=== PATIENT | female | born 2000 | race Caucasian/White ===

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

== ENCOUNTER 2019-12-29 07:44 | Emergency (ER) | payer OTHER, MEDICAID, SELFPAY ==
[2019-12-29 07:45] VITALS: BP 136/75; PULSE 121; RESP 20; TEMP 36.9; O2SAT 98; BMI 23.1
--- NOTE | 2019-12-29 07:54 | EKG12_ITS ---
Test Reason : OD Blood Pressure : / mmHG Vent. Rate : 126 BPM Atrial Rate : 126 BPM P-R Int : 128 ms QRS Dur : 062 ms QT Int : 310 ms P-R-T Axes : 063 074 062 degrees QTc Int : 448 ms Sinus tachycardia Otherwise normal ECG Confirmed by AYAKA DANIELLE, BRIAN ([id number]), tape editor FELIPE VELA ([id number]) on 12/30/2019 2:16:34 PM Referred By: BB Confirmed By:SHASHI MARLEY MD
--- NOTE | 2019-12-29 07:54 | CT_ITS ---
STUDY: CT BRAIN WITHOUT CONTRAST REASON FOR EXAM: Female, 19 years old[place] Pt is mrd and took 1/2 bottle of Motrin RADIATION DOSAGE (If Supplied By Facility): CTDIvol = ( 44.99 ) mGy, DLP = ( 745.49 ) mGycm TECHNIQUE: Transaxial CT imaging of the brain was performed without administration of intravenous contrast material. Individualized dose optimization techniques were used for this CT. COMPARISON: No relevant priors. FINDINGS: Normal soft tissue structures. Normal calvarium. Normal size ventricles and extra-axial spaces for the patient''s age. Normal white matter tracts of the cerebral hemispheres. Normal basal ganglia and thalami. Normal brainstem. Normal cerebellum. There is no intracranial hemorrhage. There are no findings of an acute ischemic infarction. Normal visualized paranasal sinuses. CT/Brain/Head without Contrast IMPRESSION: Normal unenhanced CT scan of the brain. Electronically Signed: Kiran Hunt, at 11:20 EST , Service support ,
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
--- NOTE | 2019-12-29 08:01 | ED.RN ---
PT NOT ANSWERING [place] QUESTIONS, UNABLE TO DETERMINE MEDICAL HX. PT POSSIBLY NAME IS MIGUEL FROM [place] BUT UNSURE. ATTEMPTING THRU [facility] DEPARTMENT TO LOCATE IF MISSING PERSON HAS BEEN REPORTED
[2019-12-29] MEDS: Metoclopramide 10 MG/2 ML Vial 5 MG IV (08:13)
[2019-12-29 08:19] LABS: Absolute Lymphocyte Count 1.35 X10^3/uL (0.83-4.51); Basophil# 0.03 X10^3/uL; Basophil% 0.4 % (0-1); Eosinophil# 0.06 X10^3/uL; Eosinophils% 0.8 % (0-5); Hematocrit 37.4 % (37-47); Hemoglobin 11.9 g/dL (12.0-15.0); Lymphocyte # 1.35 X10^3/ul (4.0); Mean Corp Hgb Conc 31.8 g/dL (32-36); Mean Corpuscular Hgb 26.6 pg (27.0-32.0); Mean Corpuscular Volume 83.7 fL (81-99); Mean Platelet Vol. 11.7 fl (6.2-12.0); Monocyte# 0.55 X10^3/uL; Monocyte% 6.9 % (0-10); NRBC Flagged by Analyzer 0 % (0-5); Neutrophil # 5.95 X10^3/uL (2.7-7.7); Neutrophil % 74.8 % (47-70); Platelet Count 229 K/mm3 (150-450); RBC Distribution Width SD 39.7 fl (35.1-43.9); Red Blood Count 4.47 M/mm3 (4.2-5.4)
[2019-12-29] MEDS: Ketorolac 15 MG/ML Vial IV (08:20)
[2019-12-29 08:26] LABS: Internal QC Validated? YES +Cl - CLEAR BKGD; Pregnancy, Serum, hCG Quali. NEGATIVE Negative
[2019-12-29 08:41] LABS: ALB/GLOB Ratio 1.3 RATIO (0.9-2.4); AST(SGOT) 16 U/L (15-37); Alanine Aminotransfer ALT/SGPT 20 U/L (13-56); Albumin, Serum 4.1 g/dL (3.2-5.0); Alkaline Phosphatase 85 U/L (45-117); Anion Gap 8 (5-15); BUN 7 mg/dL (7-18); BUN/Creat Ratio 11.5 RATIO (10-20); Calcium,Total 8.7 mg/dL (8.5-10.1); Chloride 110 mmol/L (98-107); Creatinine, Serum 0.61 mg/dL (0.55-1.02); EST Glomerular Filtration Rate 132 mL/min (>60); Est Glom Filt Rate - Afr Amer 160 mL/min (>60); Estimated Creatinine Clearance 132.38 ml/min; Globulin 3.2 g/dL (2.2-4.2); Glucose 97 mg/dL (74-106); Potassium 3.9 mmol/L (3.5-5.1); Protein, Total 7.3 g/dL (6.4-8.2); Sodium Level 140 mmol/L (136-145); Thyroid Stim Hormone (TSH) 1.73 uIU/mL (0.358-3.74)
[2019-12-29 08:45] LABS: Alcohol, Blood (Medical)-Serum < 3.0 mg/dL
[2019-12-29 09:20] LABS: Acetaminophen (Tylenol) Level < 2.0 ug/mL (10.0-30.0); Salicylate < 1.7 mg/dL (2.8-20.0)
--- NOTE | 2019-12-29 09:46 | NURSING ---
NO OLD EKGS
[2019-12-29] MEDS: Ziprasidone IM 20 MG/ML VIAL 10 MG IM (09:48)
[2019-12-29 10:29] VITALS: BP 95/54; PULSE 88; RESP 14; O2SAT 98
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
--- NOTE | 2019-12-29 10:40 | RAD_ITS ---
STUDY: X-RAY CHEST REASON FOR EXAM: Female, 19 years old. MEDICAL CLEARANCE, PT FOUND WITH BOTTLE OF MOTRIN. 30 OR [address]/ 120 BOTTLE COUNT. PT VOMITING AND SPITTING TECHNIQUE: Single AP portable view of the chest. COMPARISON: None. FINDINGS: The lungs are clear and expanded. There is no demonstrated pleural abnormality. Normal size heart. Normal mediastinum and carol ann. Normal visualized pulmonary arteries. Normal visualized aortic arch and descending thoracic aorta. Normal visualized thoracic spine. Normal visualized ribs, clavicles, and shoulders. There is no demonstrated abnormality of the visualized soft tissue structures of the upper abdomen. RAD/Chest 1 View (Portable) IMPRESSION: Normal x-ray examination of the chest. Electronically Signed: Js Buckley MD at 10:54 EST Tel , Service support ,
[2019-12-29 11:25] LABS: Amphetamine Urine VISTA NEGATIVE (<1000 ng/mL); Barbiturate Urine VISTA NEGATIVE (< 200 ng/mL); Benzodiazepine Urine VISTA NEGATIVE (< 200 ng/mL); Cocaine Urine VISTA NEGATIVE (< 300 ng/mL); Ecstacy Urine VISTA NEGATIVE (< 500 ng/mL); Methadone Urine VISTA NEGATIVE (< 300 ng/mL); PCP Urine VISTA NEGATIVE (< 25 ng/mL); THC Urine VISTA NEGATIVE (< 50 ng/mL); Vista UDS pH Range 6
[2019-12-29 11:58] VITALS: BP 105/63; PULSE 110; RESP 18; O2SAT 98
--- NOTE | 2019-12-29 12:00 | CM.ED ---
SOCIAL WORK Collaboration with Dr. Levin after medical clearance. Per Dr. Levin, patient has been cleared for discharge home with mother, Aimee. No SS need at this time. Plan: Home with motherAimee Aparna Lange, SUMMER INTERN , HOME HEALTH ATTENDANT
[2019-12-29 12:22] VITALS: BP 108/64; PULSE 100; RESP 18; O2SAT 99
== END 2019-12-29 12:26 | disposition home or self-care (01) ==
PROVIDERS: Emergency Provider Emergency Medicine
DX: R45.851 Suicidal ideations (principal); R10.9 Unspecified abdominal pain; G89.29 Other chronic pain; R11.2 Nausea with vomiting, unspecified
CPT/HCPCS: 70450; 71045; 74176; 80053; 80307; 80320; 80329; 84443; 84703; 85025; 93005; 96361; 96372; 96374; 96375; 99285; J7030; P9612; A4216; G0480